=== PATIENT | female | born 1990 | race Caucasian/White ===

== ENCOUNTER 2019-07-05 15:12 | Emergency (ER) | payer MEDICAID ==
[~2019-07-05] VITALS: Ht 167.6 cm; Wt 70.8 kg
[2019-07-05 15:12] VITALS: BP_SYST 108
[2019-07-05] MEDS ORDERED: IBUPROFEN 800 MG TABLET PO ONE (15:45)
[2019-07-05] MEDS ORDERED: BACITRACIN 1 GM OINT TP ONE (15:45)
[2019-07-05] MEDS ORDERED: HYDROcodone/ACETAMIN 5-325 MG TAB (NORCO/ VICODIN) PO ONE (16:00)
[2019-07-05] MEDS ORDERED: DIPH-TET-PERTUS Vaccine 0.5 ML VIAL (ADACEL) I.M. ONE (17:30)
[2019-07-05 17:45] VITALS: BP_SYST 108
== END 2019-07-05 17:45 | disposition home or self-care (01) ==
LOC: SED 15:12
DX: S82.301A Unspecified fracture of lower end of right tibia, initial encounter for closed fracture (principal); S40.011A Contusion of right shoulder, initial encounter; S70.01XA Contusion of right hip, initial encounter; M25.571 Pain in right ankle and joints of right foot; W05.1XXA Fall from non-moving nonmotorized scooter, initial encounter; Y93.89 Activity, other specified; Y92.89 Other specified places as the place of occurrence of the external cause; Y99.8 Other external cause status
CPT/HCPCS: 90715; 99284